=== PATIENT | female | born 2000 | race African-American/Black ===

== ENCOUNTER 2025-01-15 20:25 | Emergency (ER) | payer OTHER, SELFPAY ==
[~2025-01-15] VITALS: Ht 165.1 cm; Wt 48.0 kg
[2025-01-16] MEDS ORDERED: OXYC1TAB23 PO (02:13)
[2025-01-16 02:33] VITALS: BP 107/61; TEMP 98.9; O2SAT 100
[2025-01-16] MEDS: BOOSTRIX VACCINE (TETANUS/DIPHTH/ACEL. PERTUSSIS) 0.5 ML SYR IM.IMMUN ONE (02:41)
[2025-01-16] MEDS: KETOROLAC 30 MG/ML 1 ML VIAL IM ONE (02:41)
== END 2025-01-16 03:07 | disposition home or self-care (01) ==
LOC: M ED 20:25
DX: S00.81XA Abrasion of other part of head, initial encounter (principal); S03.2XXA Dislocation of tooth, initial encounter; V19.9XXA Pedal cyclist (driver) (passenger) injured in unspecified traffic accident, initial encounter; Y92.9 Unspecified place or not applicable; Y93.55 Activity, bike riding; Y99.9 Unspecified external cause status
CPT/HCPCS: 70450; 70486; 90471; 90715; 96372; 99283; J1885